=== PATIENT | male | born 1965 | race Caucasian/White ===

== ENCOUNTER 2019-12-31 00:44 | Emergency (ER) | payer BC ==
[2019-12-31] MEDS ORDERED: SODIUM CHLORIDE 0.9% 1,000 ML IV STA ×2 (01:23)
[2019-12-31] MEDS ORDERED: ONDANSETRON 4 MG/2 ML VIAL IVP STA (01:23)
[2019-12-31] MEDS ORDERED: MORPHINE SULFATE 4 MG/ML SYRINGE IV STA (01:23)
[2019-12-31] MEDS ORDERED: KETOROLAC 30 MG/ML 1 ML VIAL IVP STA (01:23)
--- NOTE | 2019-12-31 01:24 | ED ---
Abdominal Pain HPI - General Chief Complaint: Abdominal Pain Stated Complaint: Kidney Stones Time Seen by Provider: 12/31/19 01:12 Source: patient, RN notes reviewed, old records reviewed Mode of arrival: ambulatory Limitations: no limitations - History of Present Illness Initial Comments: 54-year-old male presents emergency room today with chief complaint of left flank pain radiating to left groin. Symptoms starting around 2 PM yesterday afternoon. Patient reports he took some Tylenol PMs and did have some mild relief. He states he went to work and thought that would take the mind off the pain. He said a history of frequent kidney stones in the past and states this feels similar to a previous. He states a few years ago he did have to have emergency surgery to have the stone removed by lithotripsy and stenting. Patient reports that he has had no vomiting but has felt nauseous. - Related Data Previous Rx's Medication Instructions Recorded Acetaminophen with Codeine 1 tab PO Q6H PRN 3 Days #12 tab 12/31/19 [Tylenol w/codeine #3] Ketorolac [Toradol] 10 mg PO Q6HR #15 tab 12/31/19 Ondansetron Odt [Zofran Odt] 4 mg PO Q8HR PRN #12 tab 12/31/19 Tamsulosin [Flomax] 0.4 mg PO DAILY #10 cap 12/31/19 Allergies Allergy/AdvReac Type Severity Reaction Status Date / Time No Known Allergies Allergy Verified 12/31/19 01:02 Review of Systems ROS Statement: Those systems with pertinent positive or pertinent negative responses have been documented in the HPI. ROS Other: All systems not noted in ROS Statement are negative. Past Medical History Past Medical History: Asthma, Hypertension History of Any Multi-Drug Resistant Organisms: C-DIFF Date of last positivie culture/infection: 2018 Past Surgical History: Appendectomy, Cholecystectomy Past Psychological History: No Psychological Hx Reported Smoking Status: Former smoker Past Alcohol Use History: None Reported Past Drug Use History: None Reported General Exam - General Exam Comments Initial Comments: A 54-year-old male. No acute distress. Limitations: no limitations General appearance: alert Head exam: Present: atraumatic, normocephalic, normal inspection Eye exam: Present: normal appearance, PERRL, EOMI. Absent: scleral icterus, conjunctival injection, periorbital swelling ENT exam: Present: normal exam, mucous membranes moist Neck exam: Present: normal inspection. Absent: tenderness, meningismus, lymphadenopathy Respiratory exam: Present: normal lung sounds bilaterally. Absent: respiratory distress, wheezes, rales, rhonchi, stridor Cardiovascular Exam: Present: regular rate, normal rhythm, normal heart sounds. Absent: systolic murmur, diastolic murmur, rubs, gallop, clicks GI/Abdominal exam: Present: soft, tenderness (Left CVA tenderness), normal bowel sounds. Absent: distended, guarding, rebound, rigid Extremities exam: Present: normal inspection, full ROM, normal capillary refill. Absent: tenderness, pedal edema, joint swelling, calf tenderness Back exam: Present: normal inspection Course Vital Signs 12/31/19 00:59 Temperature 97.9 F Pulse Rate 63 Respiratory 18 Rate Blood Pressure 125/80 O2 Sat by Pulse 98 Oximetry Medical Decision Making - Medical Decision Making Patient's [id number]-ire male presents with left groin and flank pain starting last night around 2 PM. Patient has had multiple history of kidney stones. Patient's urinalysis is positive for blood. Patient was given IV fluids and pain medication. CT shows evidence of a 5 mm stone. Patient is given Flomax. Advised close follow-up with urology. We'll discharge the Patient with anti- inflammatory and pain medication as well as nausea medication. Discussed return parameters. - Lab Data Result diagrams: 12/31/19 01:49 12/31/19 01:49 Lab Results 12/31/19 12/31/19 12/31/19 Range/Units 01:49 01:49 01:49 WBC 5.4 (3.8-10.6) k/uL RBC 4.37 (4.30-5.90) m/uL Hgb 13.3 (13.0-17.5) gm/dL Hct 40.3 (39.0-53.0) % MCV 92.4 (80.0-100.0) fL MCH 30.5 (25.0-35.0) pg MCHC 33.1 (31.0-37.0) g/dL RDW 12.5 (11.5-15.5) % Plt Count 313 (150-450) k/uL Neutrophils % 38 % Lymphocytes % 53 % Monocytes % 5 % Eosinophils % 2 % Basophils % 0 % Neutrophils # 2.1 (1.3-7.7) k/uL Lymphocytes # 2.9 (1.0-4.8) k/uL Monocytes # 0.3 (0-1.0) k/uL Eosinophils # 0.1 (0-0.7) k/uL Basophils # 0.0 (0-0.2) k/uL Sodium 136 L (137-145) mmol/L Potassium 4.0 (3.5-5.1) mmol/L Chloride 106 (98-107) mmol/L Carbon Dioxide 25 (22-30) mmol/L Anion Gap 5 mmol/L BUN 17 (9-20) mg/dL Creatinine 0.82 (0.66-1.25) mg/dL Est GFR (CKD-EPI)AfAm >90 (>60 ml/min/1.73 sqM) Est GFR (CKD-EPI)NonAf >90 (>60 ml/min/1.73 sqM) Glucose 96 (74-99) mg/dL Calcium 9.2 (8.4-10.2) mg/dL Total Bilirubin 0.4 (0.2-1.3) mg/dL AST 22 (17-59) U/L ALT 17 (4-49) U/L Alkaline Phosphatase 28 L (38-126) U/L Total Protein 6.4 (6.3-8.2) g/dL Albumin 4.4 (3.5-5.0) g/dL Amylase 75 (30-110) U/L Lipase 301 H (23-300) U/L Urine Color Light Yellow Urine Appearance Cloudy (Clear) Urine pH 7.0 (5.0-8.0) Ur Specific [place] 1.008 (1.001-1.035) Urine Protein Negative (Negative) Urine Glucose (UA) Negative (Negative) Urine Ketones Negative (Negative) Urine Blood Small H (Negative) Urine Nitrite Negative (Negative) Urine Bilirubin Negative (Negative) Urine Urobilinogen <2.0 (<2.0) mg/dL Ur Leukocyte Esterase Negative (Negative) Urine RBC 26 H (0-5) /hpf Urine WBC 2 (0-5) /hpf Amorphous Sediment Rare H (None) /hpf Urine Mucus Rare H (None) /hpf Disposition Clinical Impression: Ureteral stone Disposition: HOME SELF-CARE Condition: Good Instructions (If sedation given, give patient instructions): Ureteral Stones (ED) Additional Instructions: Please use medication as discussed. Please follow up with family doctor if symptoms have not improved over the next two days. Please return to the emergency room if your symptoms increase or worsen or for any other concerns. Prescriptions: Tamsulosin [Flomax] 0.4 mg PO DAILY #10 cap Ketorolac [Toradol] 10 mg PO Q6HR #15 tab Acetaminophen with Codeine [Tylenol w/codeine #3] 1 tab PO Q6H PRN 3 Days #12 tab PRN Reason: Pain Ondansetron Odt [Zofran Odt] 4 mg PO Q8HR PRN #12 tab PRN Reason: Nausea Is patient prescribed a controlled substance at d/c from ED?: Yes If prescribed controlled substance>3 days was MAPS reviewed?: Prescribed <3 Days If opioid is for acute pain is fill amount 7 days or less?: Yes If Rx opioid, was Start Talking consent form obtained?: Yes Referrals: Marcio Dudley MD [Primary Care Provider] - 1-2 days Time of Disposition: 02:48
[2019-12-31 02:01] LABS: Basophils % (A) 0 %; Eosinophils # (A) 0.1 k/uL (0-0.7); Eosinophils % (A) 2 %; HCT 40.3 % (39.0-53.0); HGB 13.3 gm/dL (13.0-17.5); Lymphocytes # (A) 2.9 k/uL (1.0-4.8); Lymphocytes % (A) 53 %; MCH 30.5 pg (25.0-35.0); MCHC 33.1 g/dL (31.0-37.0); MCV 92.4 fL (80.0-100.0); Mean Platelet Volume 7.5; Monocytes # (A) 0.3 k/uL (0-1.0); Monocytes % (A) 5 %; Neutrophils # (A) 2.1 k/uL (1.3-7.7); Neutrophils % (A) 38 %; Platelet Count 313 k/uL (150-450); RBC 4.37 m/uL (4.30-5.90); RDW 12.5 % (11.5-15.5); WBC 5.4 k/uL (3.8-10.6)
[2019-12-31 02:02] LABS: Amorphous Sediment,Urine Rare /hpf; Appearance,Urine Cloudy (Clear); Bilirubin,Urine Negative (Negative); Blood,Urine Small (Negative); Color,Urine Light Yellow; Glucose,Urine (UA) Negative (Negative); Ketones,Urine Negative (Negative); Leukocyte Esterase,Urine Negative (Negative); Mucus,Urine Rare /hpf; Nitrite,Urine Negative (Negative); Protein,Urine Negative (Negative); RBC,Urine 26 /hpf (0-5); Specific Gravity,Urine 1.008 (1.001-1.035); Urobilinogen,Urine <2.0 mg/dL (<2.0); WBC,Urine 2 /hpf (0-5)
[2019-12-31 02:10] LABS: ALT 17 U/L (4-49); AST 22 U/L (17-59); African American GFR (CKD) >90 (>60 ml/min/1.73 sqM); Albumin 4.4 g/dL (3.5-5.0); Alkaline Phosphatase 28 U/L (38-126); Amylase 75 U/L (30-110); Anion Gap 5 mmol/L; Blood Urea Nitrogen 17 mg/dL (9-20); Calcium 9.2 mg/dL (8.4-10.2); Carbon Dioxide 25 mmol/L (22-30); Chloride 106 mmol/L (98-107); Glucose 96 mg/dL (74-99); Non-African American GFR(CKD) >90 (>60 ml/min/1.73 sqM); Sodium 136 mmol/L (137-145); Total Bilirubin 0.4 mg/dL (0.2-1.3); Total Protein 6.4 g/dL (6.3-8.2)
--- NOTE | 2019-12-31 02:37 | CT ---
EXAMINATION TYPE: CT abdomen pelvis wo con DATE OF EXAM: 12/31/2019 COMPARISON: None HISTORY: pain Left flank pain CT DLP: 471 mGycm Automated exposure control for dose reduction was used. Images were obtained from the diaphragm to the floor the pelvis with no contrast. There is minimal at electasis at the lung bases. Heart is enlarged. There is no pericardial effusion. There is no pleural effusion. Liver and spleen appear normal. Bile ducts are not dilated. Stomach is intact. There is no pancreatic mass. There are clips from cholecystectomy. There is no adrenal mass. Kidneys have normal size. There is some fullness of the left renal pelvis. There are multiple bilateral renal calculi that measure up to 5 mm. There is 5 mm obstructing calculu s at the left ureteral pelvic junction. There is no retroperitoneal adenopathy. There are multiple sigmoid diverticula. Bladder distends smoo thly. There is no inguinal hernia. Prostate is intact. There is prostate mild calcification. There is no free fluid in the pelvis. There is no evidence of pelvic mass. Appendix is not definitely seen. There is no sign of thickened appendix. There is no mesenteric edema. There is no ascites or free air. There is no bowel obstruction. The lum bar spine is intact. Bony pelvis is intact. There is no lumbar compression fracture. Hip joints appea r normal. IMPRESSION: Multiple bilateral renal calculi. Obstructing calculus at the left ureteropelvic junction. Appendix not seen. No sign of thickened appendix.
[2019-12-31] MEDS ORDERED: TAMSULOSIN 0.4 MG CAP.ER.24H PO STA (02:42)
[2019-12-31] MEDS ORDERED: HYDROmorphone 1 MG/ML 1 ML SYRINGE IVP STA (02:58)
[2019-12-31 03:35] VITALS: BP 109/77; PULSE 60; RESP 16; TEMP 97.4
== END 2019-12-31 03:35 | disposition home or self-care (01) ==
LOC: EC 00:44
DX: N20.1 Calculus of ureter (principal); Z87.891 Personal history of nicotine dependence
CPT/HCPCS: 36415; 80053; 82150; 83690; 85025; 81001; 74176; 96374; 96375 ×3; 96361; 99285; J2270; J2405; J1885; J1170

== ENCOUNTER → 2020-06-08 | Outpatient (CLI) | payer BC | END | disposition home or self-care (01) | LOC: LABWHC1 13:06 | PROVIDERS: ATTEND Internal Medicine | DX: Z20.822 Contact with and (suspected) exposure to COVID-19 (principal) | CPT/HCPCS: U0003; C9803; U0005 ==

== ENCOUNTER → 2020-07-02 | Outpatient (CLI) | payer BC ==
[2020-07-02 14:20] LABS: Basophils % (A) 1 %; Eosinophils # (A) 0.1 k/uL (0-0.7); Eosinophils % (A) 1 %; HCT 41.9 % (39.0-53.0); Lymphocytes # (A) 1.9 k/uL (1.0-4.8); Lymphocytes % (A) 31 %; MCH 30.9 pg (25.0-35.0); MCHC 33.3 g/dL (31.0-37.0); MCV 92.7 fL (80.0-100.0); Monocytes # (A) 0.3 k/uL (0-1.0); Monocytes % (A) 5 %; Neutrophils # (A) 3.6 k/uL (1.3-7.7); Neutrophils % (A) 60 %; Platelet Count 315 k/uL (150-450); RBC 4.52 m/uL (4.30-5.90); RDW 12.8 % (11.5-15.5)
[2020-07-02 14:38] LABS: African American GFR (CKD) >90 (>60 ml/min/1.73 sqM); Anion Gap 9 mmol/L; Blood Urea Nitrogen 16 mg/dL (9-20); Calcium 9.5 mg/dL (8.4-10.2); Carbon Dioxide 27 mmol/L (22-30); Chloride 100 mmol/L (98-107); Glucose 94 mg/dL (74-99); Non-African American GFR(CKD) >90 (>60 ml/min/1.73 sqM); Potassium 4.8 mmol/L (3.5-5.1); Sodium 136 mmol/L (137-145)
== END | disposition home or self-care (01) ==
LOC: LABPAT 13:10
PROVIDERS: ATTEND Urology
DX: Z01.818 Encounter for other preprocedural examination (principal); N20.2 Calculus of kidney with calculus of ureter
CPT/HCPCS: 36415; 80048; 85025

== ENCOUNTER 2020-07-05 10:18 | Day surgery (SDC) | payer BC ==
[2020-07-03 12:34] VITALS: BMI 24.2
--- NOTE | 2020-07-04 13:25 | P.GSHP ---
History of Present Illness H&P Date: 06/30/20 Chief Complaint: Back and abdominal pain. The patient is a 54-year-old white male with a history of urolithiasis. He states that his calculi were composed of uric acid at 1 time. He has recently experienced back and lower abdominal pain, associated with hematuria and nausea. A computed tomography scan shows moderate left hydronephrosis due to a 6 mm calculus at the left ureterovesical junction. Also noted were bilateral renal calculi measuring up to 4 mm in size. - Constitutional Constitutional: Denies fever - Gastrointestinal Gastrointestinal: Reports nausea, Reports vomiting - Genitourinary (Male) Genitourinary: Reports flank pain, Reports hematuria, Reports kidney stones Past Medical History Past Medical History: Asthma, Hypertension History of Any Multi-Drug Resistant Organisms: C-DIFF Date of last positivie culture/infection: 2018 Past Surgical History: Appendectomy, Cholecystectomy Past Psychological History: No Psychological Hx Reported Smoking Status: Former smoker Past Alcohol Use History: None Reported Past Drug Use History: None Reported - Past Family History Father Family Medical History: Cancer Additional Family Medical History / Comment(s): prostate cancer Mother Family Medical History: Blood Disorder Additional Family Medical History / Comment(s): "blood clots fast" Medications and Allergies Home Medications Medication Instructions Recorded Confirmed Type Tamsulosin [Flomax] 0.4 mg PO DAILY #10 cap 12/31/19 07/03/20 Rx Acetaminophen [Tylenol Extra 1,000 mg PO DIRECTED PRN 07/03/20 07/03/20 History Strength] Albuterol Sulfate [Proair Hfa] 2 puff INHALATION DIRECTED PRN 07/03/20 07/03/20 History Atorvastatin [Lipitor] 10 mg PO DAILY 07/03/20 07/03/20 History Fenofibrate,Micronized 130 mg PO DAILY 07/03/20 07/03/20 History [Fenofibrate] Fluticasone Nasal [place] [Flonase 2 spr EA NOSTRIL DAILY 07/03/20 07/03/20 History Nasal [place]] Gabapentin [Neurontin] 300 mg PO TID 07/03/20 07/03/20 History HYDROcodone/APAP 7.5-325MG [[place] 1 tab PO Q8HR PRN 07/03/20 07/03/20 History 7.5-325] L.acidoph,Paracasei, B.lactis 1 each PO DAILY 07/03/20 07/03/20 History [Probiotic] Lisinopril [Zestril] 10 mg PO DAILY 07/03/20 07/03/20 History Methocarbamol [Robaxin-750] 750 mg PO Q8H 07/03/20 07/03/20 History Multivitamins, Thera [Multivitamin 1 tab PO DAILY 07/03/20 07/03/20 History (formulary)] Omeprazole Magnesium [PriLOSEC OTC] 20 mg PO DAILY 07/03/20 07/03/20 History Allergies Allergy/AdvReac Type Severity Reaction Status Date / Time No Known Allergies Allergy Verified 07/03/20 11:59 Surgical - Exam - General well developed, well nourished, no distress - Neck no masses, trachea midline - Respiratory normal respiratory effort, clear to auscultation - Cardiovascular Rhythm: regular Abnormal Heart Sounds: no systolic murmur, no diastolic murmur, no rub, no S3 Gallop, no S4 Gallop, no click, no other - Abdomen Abdomen: soft, non tender, no guarding, no rigid, no rebound - Genitourinary normal penis with no external lesions, testicles non-tender - Psychiatric oriented to time, oriented to person, oriented to place, speech is normal, memory intact Results - Imaging CT scan - abdomen: report reviewed, image reviewed Assessment and Plan (1) Calculus of ureter Status: Acute Code(s): N20.1 - CALCULUS OF URETER SNOMED Code(s): 41895531 Plan: Cystoscopy, left ureteroscopy with Holmium laser lithotripsy and possible stone basketing. Possible left ureteral stent insertion. I had a lengthy discussion with the patient regarding alternative approaches. It was decided that if the distal ureteral stone could be removed simply such that a ureteral stent would not be required, the procedure would be terminated. Conversely, if removal of the distal ureteral stone would warrant placement of a stent, he would then desire removal of his left renal calculi. He is aware of potential risks, which include anesthesia, bleeding, infection, and ureteral injury.
[~2020-07-05 10:18] MED LIST: DEXAMETHASONE SOD PHOSPHATE 4 MG/ML 1 ML VIAL IV ONE; LACTATED RINGERS 1,000 ML IV SCH; LIDOCAINE 1% (10MG/ML) FOR IV START INTRADERMA PRN; MIDAZOLAM 2 MG/2 ML VIAL IV PRN; ONDANSETRON 4 MG/2 ML VIAL IVP ONE
--- NOTE | 2020-07-05 10:45 | XR ---
EXAMINATION TYPE: XR KUB DATE OF EXAM: 07/05/2020 10:36 AM CLINICAL HISTORY: Left ureter calculi, history of bilateral renal stones. TECHNIQUE: Two supine KUB images of the abdomen are obtained. COMPARISON: CT abdomen and pelvis December 31, 2019. FINDINGS: There are roughly 4-5 small scattered calculi throughout the right kidney near the level of the T12 rib redemonstrated. Similar small scattered 4-5 calculi throughout the left kidney near left T12 rib also redemonstrated. Obstructing 5 to 6 mm proximal ureteric calculus on CT near level of th e superior L3 vertebra is less well seen on plain films. Some vascular calcification and phleboliths in the pelvis redemonstrated. Cholecystectomy clips redemonstrated. Visualized lung bases are clear. Visualized osseous structures are intact. Inferior calcifications just above pubic symphysis correspond to prostatic calcifications . IMPRESSION: As above. Overall nonobstructive bowel gas pattern.
[2020-07-05] MEDS ORDERED: fentaNYL (PF) 50 MCG/ML 2 ML AMP IV ONE (11:13)
[2020-07-05] MEDS ORDERED: PROPOFOL 10 MG/ML 20 ML VIAL IV ONE (12:30)
[2020-07-05] MEDS ORDERED: SUCCINYLCHOLINE CHLORIDE 100 MG/5 ML SYR IV ONE (12:30)
[2020-07-05] MEDS ORDERED: MIDAZOLAM 2 MG/2 ML VIAL ONE (12:30)
[2020-07-05] MEDS ORDERED: LIDOCAINE 1% INJ 10MG/ML (20 ML MDV) ONE (12:30)
[2020-07-05] MEDS ORDERED: fentaNYL (PF) 50 MCG/ML 2 ML AMP ONE (12:30)
[2020-07-05] MEDS ORDERED: GLYCOPYRROLATE 0.2 MG/ML 2 ML VIAL ONE (12:30)
[2020-07-05] MEDS ORDERED: NEOSTIGMINE 1 MG/ML 10 ML VIAL ONE (12:30)
[2020-07-05] MEDS ORDERED: KETOROLAC 15 MG/ML 1 ML VIAL ONE (12:30)
[2020-07-05] MEDS ORDERED: ROCURONIUM 10 MG/ML (10 ML VIAL) IV ONE (12:30)
[2020-07-05] MEDS ORDERED: IOPAMIDOL-370 50ML BTL MISCELLANE ONE (12:50)
--- NOTE | 2020-07-05 13:56 | P.OP ---
Date of Procedure: 07/05/20 Preoperative Diagnosis: Left ureteral calculus, left renal calculi Postoperative Diagnosis: Left renal calculi Procedure(s) Performed: Cystoscopy, left retrograde pyelogram, left ureteroscopy with Holmium laser lithotripsy and stone basketing, left ureteral stent insertion Anesthesia: ROBER Surgeon: Bharath Reyes Estimated Blood Loss (ml): 0 IV fluids (ml): 400 Pathology: other (Calculus fragments, sent for chemical analysis) Condition: stable Disposition: PACU Indications for Procedure: The patient is a 54-year-old white male with a history of urolithiasis. He states that his calculi were composed of uric acid at 1 time. He has recently experienced back and lower abdominal pain, associated with hematuria and nausea. A computed tomography scan shows moderate left hydronephrosis due to a 6 mm calculus at the left ureterovesical junction. Also noted were bilateral renal calculi measuring up to 4 mm in size. Operative Findings: 4 mm left upper pole renal calculus. Multiple Eliceo's plaques. No left ureteral calculus seen. Description of Procedure: The patient was taken to the operating room and placed in the dorsolithotomy position, with legs supported in Saúl stirrups. The external genitalia was prepped and draped sterilely. The 30 lens was used to introduce the 21-Burkinan Morejon cystoscopic sheath through the urethra and into the bladder under direct vision. The prostatic urethra showed evidence of mild lateral lobe enlargement. The bladder was examined in its entirety. Both ureteral orifices were normal anatomic location and configuration, and clear urine effluxed from both. No tumors or foreign bodies were seen. Using a 10-Burkinan cone-tipped catheter, a left retrograde pyelogram was performed. No definite calculi were seen. The Morejon semirigid ureteroscope was advanced into the bladder, and the left ureteral orifice was cannulated. The ureteroscope was slowly advanced under direct vision, up to the proximal ureter. No ureteral calculi were seen. There was no evidence of ureteral edema. A 0.038 inch Glidewire was passed through the ureteroscope and advanced up to the left renal pelvis. The ureteroscope was removed, and an 11/13-Burkinan ureteral access catheter was passed over the wire, up to the proximal ureter. The flexible ureteroscope was then passed through the ureteral access catheter sheath, and advanced under direct vision through the proximal ureter and into the left renal pelvis. Each calyx was examined. A 4 mm calculus was located within a small upper pole calyx. A 2 mm stone was seen in a midpole calyx. Multiple Eliceo's plaques were identified. The 200 micron Holmium laser probe was passed through the ureteroscope, and lithotripsy was performed to treat the 4 mm upper pole calculus. Fragments were removed via Stone basketing. The remaining calyces were inspected, and the smaller calculus as well as the Eliceo's plaques were treated. There were no residual calculus fragments exceeding the size of the laser fiber tip. The ureteroscope was slowly withdrawn under direct vision. There was no evidence of ureteral trauma. The cystoscope was advanced into the bladder. The Glidewire was passed up to the left renal pelvis. A 26 cm, 4.8-Burkinan double-J ureteral stent was placed over the wire. Proper stent positioning was verified fluoroscopically and endoscopically. The bladder was emptied and the cystoscope removed. The string attached to the stent was taped to the patient's penis using a Tegaderm dressing. The patient tolerated the procedure well and was taken to the recovery room in stable condition. Ribbon Report: Procedure Acuity: Semi-Urgent Stone Size and Location: 4 mm, left upper pole Ureteral Dilation: No Ureteral Access Sheath Used: Yes Stone Sent for Analysis: Yes All Stones/Fragments Were Removed with a Basket: Yes Complications: No Preoperative Antibiotics Given: Yes Stent Placed: Yes If Stent Placed, Was String Left Attached: Yes If Stent Placed, When is it to be Removed: 1 week Discharge Medications: Continue preop medications.
[2020-07-05 14:07] VITALS: TEMP 96.8
[2020-07-05] MEDS: HYDROmorphone 0.5 MG/0.5 ML SYRINGE IVP PRN ×3 (14:12→14:42)
[2020-07-05 15:04] VITALS: RESP 16
--- NOTE | 2020-07-05 15:13 | FL ---
Fluoroscopy HISTORY: Kidney stone 26 seconds fluoroscopy time supplied to the referring clinician. 1 intraoperative C-arm images docum ent the procedure. See dictated report from urology.
[2020-07-05 15:43] VITALS: BP 118/71; PULSE 56
== END 2020-07-05 15:58 | disposition home or self-care (01) ==
LOC: OR 10:18
PROVIDERS: ATTEND Urology
DX: N20.0 Calculus of kidney (principal); N40.0 Benign prostatic hyperplasia without lower urinary tract symptoms; J45.909 Unspecified asthma, uncomplicated; I10 Essential (primary) hypertension; E78.5 Hyperlipidemia, unspecified; K21.9 Gastro-esophageal reflux disease without esophagitis; K22.70 Barrett's esophagus without dysplasia; Z87.442 Personal history of urinary calculi; Z86.19 Personal history of other infectious and parasitic diseases; Z90.49 Acquired absence of other specified parts of digestive tract; Z87.891 Personal history of nicotine dependence; Z79.899 Other long term (current) drug therapy; Z80.42 Family history of malignant neoplasm of prostate; Z82.49 Family history of ischemic heart disease and other diseases of the circulatory system
CPT/HCPCS: 82365; 74420; 74018; 52356; C2625; C1758; C1769; J2250; J1100; J2710; J0690; J2405; J2001; J3010; J1885; J0330; J2704; J1170; Q9967

== ENCOUNTER → 2020-08-27 | Outpatient (CLI) | payer BC ==
--- NOTE | 2020-08-27 13:10 | US ---
EXAMINATION TYPE: US kidneys/renal and bladder DATE OF EXAM: 08/27/2020 COMPARISON: NONE CLINICAL HISTORY: 55 are old male N20.0 Calculus. Known stones for years, lithotripsy and stenting 2020, no symptoms now TECHNIQUE: Multiple sonographic images of the kidneys and bladder are obtained. EXAM MEASUREMENTS: Right Kidney: 10.8 x 6.0 x 5.6 cm Left Kidney: 10.6 x 4.7 x 5.9 cm Right Kidney: Scattered echogenic foci are seen, largest measuring 1.0cm at the lower pole. No hydron ephrosis. Left Kidney: A couple benign cortical cysts, largest in the lower pole measuring 3.4 x 3.2 x 3.0cm. I n addition, there is a 6 mm lower pole calculus. No hydronephrosis. Bladder: wnl IMPRESSION: 1. No hydronephrosis. 2. Scattered nonobstructive right renal calculi measuring up to 1 cm. By ultrasound, single left-side d renal calculus is seen measuring 6 cm. 3. A couple benign cortical cyst in the left kidney measuring up to 3.4 cm.
== END | disposition home or self-care (01) ==
LOC: RADUSWWP 12:11
PROVIDERS: ATTEND Urology
DX: N28.1 Cyst of kidney, acquired (principal); N20.0 Calculus of kidney
CPT/HCPCS: 76770

== ENCOUNTER → 2020-08-31 | Outpatient (CLI) | payer BC | END | disposition home or self-care (01) | LOC: RADECHMAIN 11:51 | PROVIDERS: ATTEND Internal Medicine | DX: I47.1 Supraventricular tachycardia (principal) | CPT/HCPCS: 93270 ==

== ENCOUNTER → 2021-01-30 | Outpatient (CLI) | payer BC ==
--- NOTE | 2021-01-30 15:38 | XR ---
Lumbar spine HISTORY: M47.816 3 views the lumbar spine There is a dextroscoliosis centered at L3. Lumbar vertebral bodies show preserved height and bone min eralization. Some loss of disc height present at L4-5, L3-4. Sclerosis in the posterior elements is c onsistent with facet arthropathy. Atherosclerotic calcifications are present in the aortoiliac distri bution. Surgical clips are present in the right upper quadrant. IMPRESSION: Spinal curvature, generative disc disease, facet arthropathy
== END | disposition home or self-care (01) ==
LOC: RADXRMAIN 11:06
PROVIDERS: ATTEND Internal Medicine
DX: M51.36 Other intervertebral disc degeneration, lumbar region (principal); M47.816 Spondylosis without myelopathy or radiculopathy, lumbar region
CPT/HCPCS: 72100

== ENCOUNTER → 2021-08-05 | Outpatient (CLI) | payer BC ==
--- NOTE | 2021-08-05 11:16 | NM ---
EXAMINATION TYPE: NM stress Cardiolite complete DATE OF EXAM: 08/05/2021 COMPARISON: NONE HISTORY: Chest pain TECHNIQUE: After the intravenous administration of 9.7 mCi Tc 99m Sestamibi - Rest images obtained 4 5 minutes post injection. The patient exercised using a CHIQUI protocol and 1 minute prior to peak e xercise was injected with 25.6 mCi Tc 99m Sestamibi - Stress images obtained 10 minutes post injectio n. FINDINGS: Targeted heart rate was achieved during performance of the study. Review of stress and rest SPECT mya ges demonstrates no distinct perfusion abnormality. Gated analysis shows normal wall motion with an estimated left ventricular ejection fraction of 67 %. IMPRESSION: No scintigraphic evidence for reversible ischemia
--- NOTE | 2021-08-05 12:23 | EST ---
EXERCISE STRESS AGE: 56 SEX: M HT: 5'5" WT: 155 lbs. PROTOCOL: Cardiolite Stress STAGE: 3 DURATION OF EXERCISE: 9:00 HEART RATE REST: 71 BLOOD PRESSURE REST: 120/82 MAXIMUM HEART RATE ACHIEVED: 145 MAXIMUM BLOOD PRESSURE: 166/88 85% MPHR: 139 100% MPHR: 163 METS: 10.3 INDICATIONS: Chest pain CLINICAL INFORMATION: Baseline EKG revealed normal sinus rhythm with poor R-wave progression over precordial leads; cannot exclude an old septal ID and leftward axis. Patient walked for about 9 minutes on standard Jerrod protocol. Resting heart rate was 71, peak heart rate is 145, well above 85%. Resting blood pressure was 120/80. Peak blood pressure was 166/86. There were no ST-segment changes to indicate ischemia. There was no angina or arrhythmia. There was some baseline artifact. By EKG criteria, this is a negative stress test with fair exercise capacity. The nuclear scan results, which are more pertinent, will be reported by the radiologist. FINAL IMPRESSION: 1. Fair exercise capacity with a negative stress test by EKG criteria with minor resting EKG changes. 2. The nuclear scan results, which are more pertinent, will be reported by the radiologist. MMODL / IJN: [id number] /
== END | disposition home or self-care (01) ==
LOC: RADNMMAIN 08:29
PROVIDERS: ATTEND Internal Medicine
DX: I25.10 Atherosclerotic heart disease of native coronary artery without angina pectoris (principal)
CPT/HCPCS: 93017; 78452; A9500

== ENCOUNTER → 2022-08-22 | Outpatient (CLI) | payer BC ==
--- NOTE | 2022-08-22 11:01 | XR ---
EXAMINATION TYPE: XR KUB DATE OF EXAM: 08/22/2022 COMPARISON: 07/05/2020 HISTORY: Pain TECHNIQUE: One view abdominal series FINDINGS: The osseous structures are intact. The bowel gas pattern is nonspecific. Surgical clips are seen in the right upper quadrant. There are at least 5 punctate 1 to 2 mm calcifications overlying the right kidney. 1-2 punctate calci fications overlying the left kidney. Calcifications in the pelvis are stable. Majority are likely vascular. Calcification measuring 3 mm w ithin the left upper hemipelvis could be within the course of the left ureter IMPRESSION: 1. Bilateral lateral devices similar to prior exam.
== END | disposition home or self-care (01) ==
LOC: RADXRMAIN 10:43
PROVIDERS: ATTEND Urology
DX: N20.0 Calculus of kidney (principal)
CPT/HCPCS: 74018

== ENCOUNTER → 2022-11-12 | Outpatient (CLI) | payer BC ==
--- NOTE | 2022-11-12 13:28 | CT ---
EXAMINATION TYPE: CT brain wo con DATE OF EXAM: 11/12/2022 COMPARISON: None HISTORY: right side headaches, memory loss CT DLP: 1098.[address] of the brain was performed. The ventricles, basal cisterns and sulci overlying the cerebral convexities demonstrate mild enlargem ent. There is no evidence for intracranial hemorrhage or sulcal effacement. There is decreased attenuation about the periventricular white matter and deep white matter of both c erebral hemispheres, compatible with chronic small vessel ischemia. Differential diagnosis does inclu de demyelination. No mass effects are seen.No midline shift. Osseous calvarium is intact. If symptoms persist consider MRI. IMPRESSION: 1. Age related atrophic and chronic small vessel ischemic change without acute intracranial process s een at this time.
== END | disposition home or self-care (01) ==
LOC: RADCTMAIN 12:58
PROVIDERS: ATTEND Internal Medicine
DX: G31.1 Senile degeneration of brain, not elsewhere classified (principal); R41.3 Other amnesia; I67.82 Cerebral ischemia
CPT/HCPCS: 70450

== ENCOUNTER → 2023-04-20 | Outpatient (CLI) | payer BC | END | disposition home or self-care (01) | LOC: LABWHC1 11:27 | PROVIDERS: ATTEND Psychiatry & Neurology Neurology | DX: Z53.9 Procedure and treatment not carried out, unspecified reason (principal) ==

== ENCOUNTER 2023-04-28 09:00 | Day surgery (SDC) | payer BC ==
[~2023-04-28 09:00] MED LIST changes: -DEXAMETHASONE SOD PHOSPHATE 4 MG/ML 1 ML VIAL IV ONE; -LIDOCAINE 1% (10MG/ML) FOR IV START INTRADERMA PRN; -MIDAZOLAM 2 MG/2 ML VIAL IV PRN; -ONDANSETRON 4 MG/2 ML VIAL IVP ONE
[2023-04-28 10:32] VITALS: TEMP 97.5
[2023-04-28 12:16] LABS: INR 0.9 (<1.2); Partial Thromboplastin Time 22.8 sec (22.0-30.0); Prothrombin Time 10.4 sec (10.0-12.5)
[2023-04-28 13:06] VITALS: PULSE 62; RESP 17
--- NOTE | 2023-04-28 13:10 | P.PCN ---
Description of Procedure: Preprocedure diagnosis. Mental status change. Postprocedure diagnosis. As above. Procedure done. Lumbar puncture and collection of cerebrospinal fluid. Anesthesia. Local infiltration with anesthetics. Continuous pulse ox, EKG, blood pressure and verbal communication was maintained with the patient. Blood loss. None. Indication. Discussed the procedure, alternatives, complications which may include infection, nerve damage, paralysis, aggravation of the symptoms especially bleeding in the spine and posterior dural puncture headache with the patient. The patient understands and questions were answered. Procedure note. After getting concentration in the procedure room in sitting position. Back prepped with chlorhexidine and draped in sterile fashion. After injecting 3 mL of 1% lidocaine subcutaneously, a 22-gauge spinal needle was introduced at L45 interspace. Positive CSF, negative blood, negative p aresthesia. CSF color was clear. CSF pressure was not measured. CSF was collected in 4 supplied sterol containers in sequence. Spinal needle was taken out and bandage was applied. Disposition. She tolerated the procedure well. No complication. Advised patient to lay flat one-hour postprocedure. The rest of the day today try to lay flat as much as possible. Next 3 days drink lots of fluid especially caffeinated beverages, and avoid constipation cough and doing strenuous physical work. Discharged home in stable condition.
[2023-04-28 13:37] VITALS: BP 126/72
== END 2023-04-28 13:42 | disposition home or self-care (01) ==
LOC: ORPAIN 09:00
PROVIDERS: ATTEND Pain Medicine Interventional Pain Medicine
DX: R41.82 Altered mental status, unspecified (principal); Z79.82 Long term (current) use of aspirin
CPT/HCPCS: 62270; 85610; 85730

== ENCOUNTER → 2023-11-30 | Outpatient (CLI) | payer BC ==
[2023-11-30 15:12] LABS: Appearance,Urine Clear (Clear); Bilirubin,Urine Negative (Negative); Blood,Urine Negative (Negative); Color,Urine Colorless; Glucose,Urine (UA) Negative (Negative); Ketones,Urine Negative (Negative); Leukocyte Esterase,Urine Negative (Negative); Nitrite,Urine Negative (Negative); Protein,Urine Negative (Negative); Specific Gravity,Urine 1.008 (1.001-1.035); Urobilinogen,Urine <2.0 mg/dL (<2.0)
--- NOTE | 2023-11-30 16:31 | XR ---
EXAMINATION TYPE: XR chest 2V DATE OF EXAM: 11/30/2023 3:48 PM CLINICAL INDICATION:Male, 58 years old with history of Z01.818 PRE OP; H COMPARISON: None TECHNIQUE: XR chest 2V Frontal and lateral views of the chest. FINDINGS: Lungs/Pleura: There is no evidence of pleural effusion, focal consolidation, or pneumothorax. Pulmonary vascularity: Unremarkable. Heart/mediastinum: Cardiomediastinal silhouette is unremarkable. Musculoskeletal: No acute osseous pathology. Remote appearing right rib injury. IMPRESSION: No acute cardiopulmonary disease/process.
[2023-11-30 18:22] LABS: Basophils # (A) 0.02 X 10*3/uL (0.00-0.10); Basophils % (A) 0.2 %; Eosinophils # (A) 0.01 X 10*3/uL (0.04-0.35); Eosinophils % (A) 0.1 %; HCT 43.9 % (39.6-50.0); HGB 14.7 g/dL (13.0-17.0); Lymphocytes # (A) 1.61 X 10*3/uL (0.90-5.00); Lymphocytes % (A) 14.5 %; MCH 31.5 pg (27.0-32.0); MCHC 33.5 g/dL (32.0-37.0); MCV 94.2 FL (80.0-97.0); Mean Platelet Volume 10.2 FL (9.5-12.2); Monocytes # (A) 0.45 X 10*3/uL (0.20-1.00); NRBC Per 100 WBC 0 X 10*3/uL (0.00-0.01); Neutrophils % (A) 80.9 %; Platelet Count 271 X 10*3/uL (140-440); RBC 4.66 X 10*6/uL (4.40-5.60); RDW 12.6 % (11.5-14.5); WBC 11.12 X 10*3/uL (4.50-10.00)
[2023-11-30 20:10] LABS: BUN/Creat Ratio 12.78 Ratio (12.00-20.00); Blood Urea Nitrogen 11.5 mg/dL (9.0-27.0); Calcium 9.4 mg/dL (8.7-10.3); Carbon Dioxide 24.6 mmol/L (21.6-31.8); Chloride 103 mmol/L (96-109); Glucose 106 mg/dL (70-110); Potassium 4.6 mmol/L (3.5-5.5); Sodium 142 mmol/L (135-145)
== END | disposition home or self-care (01) ==
LOC: LABWHC1 14:06
PROVIDERS: ATTEND Internal Medicine
DX: Z01.812 Encounter for preprocedural laboratory examination (principal)
CPT/HCPCS: 36415; 71046; 80048; 81003; 83036; 85025